=== PATIENT | female | born 1975 | race Two or more races ===

== ENCOUNTER 2017-03-28 13:53 | Emergency (ER) | payer OTHER ==
--- NOTE | 2017-03-28 14:56 | ER Document Report ---
HPI - HPI Patient complains to provider of: fall Onset: This afternoon Onset/Duration: Sudden Quality of pain: Sharp Pain Level: 5 Context: States that she was cleaning toddler playground equipment. Patient states that she fell on a toddler climbing apparatus that was 2 feet tall and fell landing hitting her left shoulder. Patient complains of headache, left lateral neck pain, left shoulder pain and nausea. Patient states nausea has gradually started to improve. Patient also reports she initially had dizziness that has gotten better. Patient denies any loss of consciousness. Associated Symptoms: Headache, Nausea, Other - shoulder pain. denies: Vomiting Exacerbated by: Movement Relieved by: Denies Similar symptoms previously: No Recently seen / treated by doctor: No - ROS ROS below otherwise negative: Yes Systems Reviewed and Negative: Yes All other systems reviewed and negative - NEURO Neurology: REPORTS: Headache, Dizzinesss / Vertigo. DENIES: Weakness - CARDIOVASCULAR Cardiovascular: DENIES: Chest pain - GASTROINTESTINAL Gastrointestinal: REPORTS: Nausea. DENIES: Patient vomiting - MUSCULOSKELETAL Musculoskeletal: REPORTS: Extremity pain, Back Pain, Neck Pain - DERM Skin Color: Normal, [place] Skin Problems: None Past Medical History - General Information source: Patient - Social History Smoking Status: Never Smoker Chew tobacco use (# tins/day): No Frequency of alcohol use: None Drug Abuse: None Occupation: day care Family History: Reviewed & Not Pertinent Patient has suicidal ideation: No Patient has homicidal ideation: No - Medical History Medical History: Negative - Past Medical History Cardiac Medical History: Denies: Hx Heart Attack, Hx Hypertension Pulmonary Medical History: Denies: Hx Asthma Neurological Medical History: Denies: Hx Cerebrovascular Accident, Hx Seizures Renal/ Medical History: Denies: Hx Peritoneal Dialysis GI Medical History: Denies: Hx Hepatitis, Hx Hiatal Hernia, Hx Ulcer Infectious Medical History: Denies: Hx Hepatitis Surgical Hx: Negative Past Surgical History: Denies: Hx Hysterectomy, Hx Mastectomy, Hx Open Heart Surgery, Hx Pacemaker Vertical Provider Document - CONSTITUTIONAL Agree With Documented VS: Yes Exam Limitations: No Limitations General Appearance: WD/WN, No Apparent Distress - INFECTION CONTROL TRAVEL OUTSIDE OF THE [place]. IN LAST 30 DAYS: No - HEENT HEENT: Atraumatic, Normal ENT Exam, Normocephalic, PERRLA Notes: no hemotympanum, no fluid or drainage from ears or nose bilaterally. no scalp hematoma, no ecchymosis or swelling - NECK Neck: Normal Inspection, Supple. negative: Lymphadenopathy-Left, Lymphadenopathy-Right Notes: no midline tenderness, step-off or deformity - RESPIRATORY Respiratory: Breath Sounds Normal, No Respiratory Distress, Chest Non-Tender O2 Sat by Pulse Oximetry: 100 - CARDIOVASCULAR Cardiovascular: Regular Rate, Regular Rhythm, No Murmur Pulses: Normal: Radial - BACK Back: Abnormal Inspection - Trapezius muscle tenderness Notes: no spinal midline tenderness, step-off or deformity - MUSCULOSKELETAL/EXTREMETIES Musculoskeletal/Extremeties: MAEW, FROM, Tender - Left posterior shoulder joint tenderness, no deformity or dislocation, No Edema - NEURO Level of Consciousness: Awake, Alert, Appropriate Motor/Sensory: No Motor Deficit - DERM Integumentary: Warm, Dry, No Rash Course - Vital Signs Vital signs: Temp Pulse Resp BP Pulse Ox 98.2 F 58 L 16 127/97 H 100 03/28/17 14:01 03/28/17 14:01 03/28/17 14:01 03/28/17 14:01 03/28/17 14:01 - Diagnostic Test Radiology reviewed: Reports reviewed Procedures - Immobilization Left Shoulder Pre-Proc Neuro Vasc Exam: Normal Immobilizer type: Sling Performed by: PCT Post-Proc Neuro Vasc Exam: Normal Alignment checked and good: Yes Discharge - Discharge Clinical Impression: Trapezius muscle spasm Fall Qualifiers: Encounter type: initial encounter Qualified Code(s): W19.XXXA - Unspecified fall, initial encounter Head injury Qualifiers: Encounter type: initial encounter Qualified Code(s): S09.90XA - Unspecified injury of head, initial encounter Sprain of left shoulder Qualifiers: Encounter type: initial encounter Shoulder sprain type: unspecified sprain Qualified Code(s): S43.402A - Unspecified sprain of left shoulder joint, initial encounter Condition: Stable Disposition: HOME, SELF-CARE Instructions: Head Injury Precautions ([facility]), Muscle Strain ([facility]), Muscle Relaxers ([facility]), Shoulder Injury ([facility]), Temporary Sling ([facility]) Additional Instructions: Return immediately for any new or worsening symptoms Followup with your primary care provider, call tomorrow to make a followup appointment Follow-up with orthopedic doctor for any continued pain or problems Prescriptions: Cyclobenzaprine HCl [Flexeril 10 Mg Tablet] 10 mg PO TID #15 tablet Forms: Return to Work Referrals: YANNICK POMPA PA-C [Primary Care Provider] - Follow up tomorrow [facility] [Provider Group] - Follow up as needed
--- NOTE | 2017-03-28 15:49 | RADIOLOGY REPORT (SQ) ---
EXAM DESCRIPTION: CT HEAD WITHOUT COMPLETED DATE/TIME: 03/28/2017 3:41 pm REASON FOR STUDY: fall, head injury COMPARISON: None. TECHNIQUE: Axial images acquired through the brain without intravenous contrast. Images reviewed wi th bone, brain and subdural windows. Images stored on PACS. All CT scanners at this facility use dose modulation, iterative reconstruction, and/or weight based d osing when appropriate to reduce radiation dose to as low as reasonably achievable (ALARA). [facility]: Dose Right [facility]: CareDose [facility]: Dose Right [facility]: Teradose 4D [facility]: Smart Songtradr RADIATION DOSE: mGy. LIMITATIONS: None. FINDINGS: VENTRICLES: Normal size and contour. CEREBRUM: No masses. No hemorrhage. No midline shift. Normal rodriguez/white matter differentiation. N o evidence for acute infarction. CEREBELLUM: No masses. No hemorrhage. No alteration of density. No evidence for acute infarction. EXTRAAXIAL SPACES: No fluid collections. No masses. ORBITS AND GLOBE: No intra- or extraconal masses. Normal contour of globe without masses. CALVARIUM: No fracture. PARANASAL SINUSES: No fluid or mucosal thickening. SOFT TISSUES: No mass or hematoma. OTHER: No other significant finding. IMPRESSION: NORMAL BRAIN CT WITHOUT CONTRAST. TECHNICAL DOCUMENTATION: JOB ID: [id number] Quality ID # [id number]: Final reports with documentation of one or more dose reduction techniques (e.g., Au tomated exposure control, adjustment of the mA and/or kV according to patient size, use of iterative reconstruction technique) 2010 [employer] ([employer] All Rights Reserved
--- NOTE | 2017-03-28 16:15 | RADIOLOGY REPORT (SQ) ---
EXAM DESCRIPTION: SHOULDER LEFT 2 OR MORE VIEWS COMPLETED DATE/TIME: 03/28/2017 4:05 pm REASON FOR STUDY: fall, shoulder pain COMPARISON: None. NUMBER OF VIEWS: Three views. TECHNIQUE: Internal rotation, external rotation, and Y view images acquired of the left shoulder. LIMITATIONS: None. FINDINGS: MINERALIZATION: Normal. BONES: No acute fracture or dislocation. No worrisome bone lesions. JOINTS: No dislocation. VISUALIZED LUNGS AND RIBS: No pneumothorax. No rib fracture. SOFT TISSUES: No radiopaque foreign body. OTHER: No other significant finding. IMPRESSION: NEGATIVE STUDY OF THE LEFT SHOULDER. NO RADIOGRAPHIC EVIDENCE OF ACUTE INJURY. TECHNICAL DOCUMENTATION: JOB ID: [id number] [employer]- All Rights Reserved
[2017-03-28] MEDS ORDERED: ONDANSETRON 4 MG TAB.RAPDIS PO ONE (16:20)
[2017-03-28 16:40] VITALS: BP 136/79
== END 2017-03-28 16:38 | disposition home or self-care (01) ==
LOC: ER 13:53
DX: S09.90XA Unspecified injury of head, initial encounter (principal); S43.402A Unspecified sprain of left shoulder joint, initial encounter; M62.838 Other muscle spasm; R11.0 Nausea; R42 Dizziness and giddiness; W17.89XA Other fall from one level to another, initial encounter; Y93.9 Activity, unspecified; Y99.0 Civilian activity done for income or pay
CPT/HCPCS: 99284; 73030; 70450; S0119

== ENCOUNTER 2018-09-17 17:16 | Observation (INO) | payer OTHER ==
[~2018-09-17 17:16] MED LIST: DEXAMETHASONE SOD PHOSPHATE INJ 4 MG/1 ML VIAL ONE; LIDOCAINE 2% INJ-PF (20 MG/ML) 2 ML AMPUL ONE; ONDANSETRON HCL INJ/PF 4 MG/2 ML SDV ONE; ROCURONIUM BROMIDE INJ 50 MG/5 ML VIAL IV ONE; SUCCINYLCHOLINE CHLORIDE INJ 200 MG/10 ML VIAL ONE
--- NOTE | 2018-09-17 18:26 | ER Document Report ---
ED Medical Screen (RME) - General Chief Complaint: Abdominal Pain Stated Complaint: ABDOMINAL PAIN Time Seen by Provider: 09/17/18 18:20 TRAVEL OUTSIDE OF THE [place]. IN LAST 30 DAYS: No - HPI Notes: 09/17/18 18:25 Patient is a 42-year-old female that presents to the emergency department for chief complaint of left adnexal pain. Patient has history of tubal ligation in 2012. She recently found out she was . She has been having pain in her left adnexa for the last few days. Her last normal menstrual cycle was the second week of July. ROS: GENERAL: Denies fever of chills CV: Denies chest pain PHYSICAL EXAMINATION: GENERAL: Well-appearing, well-nourished and in no acute distress. HEAD: Atraumatic, normocephalic. EYES: Pupils equal round extraocular movements intact, conjunctiva are normal. ENT: Nares patent NECK: Normal range of motion LUNGS: No respiratory distress Musculoskeletal: Normal range of motion NEUROLOGICAL: Normal speech, normal gait. PSYCH: Normal mood, normal affect. MDM: Patient seen and examined for rapid initial assessment. Vital signs reviewed. A comprehensive ED assessment and evaluation of the patient, analysis of test results and completion of the medical decision making process will be conducted by additional ED providers. - Related Data Allergies/Adverse Reactions: aspirin [Aspirin] Allergy (Verified 04/29/13 11:31) NEGIN/JANELL Past Medical History - Past Medical History Cardiac Medical History: Denies: Hx Heart Attack, Hx Hypertension Pulmonary Medical History: Denies: Hx Asthma Neurological Medical History: Denies: Hx Cerebrovascular Accident, Hx Seizures Renal/ Medical History: Denies: Hx Peritoneal Dialysis GI Medical History: Denies: Hx Hepatitis, Hx Hiatal Hernia, Hx Ulcer Infectious Medical History: Denies: Hx Hepatitis Past Surgical History: Denies: Hx Hysterectomy, Hx Mastectomy, Hx Open Heart Surgery, Hx Pacemaker Physical Exam - Vital signs Vitals: Temp Pulse Resp BP Pulse Ox 97.9 F 81 18 106/71 100 09/17/18 17:22 09/17/18 17:22 09/17/18 17:22 09/17/18 17:22 09/17/18 17:22 Course - Vital Signs Vital signs: Temp Pulse Resp BP Pulse Ox 97.9 F 81 18 106/71 100 09/17/18 17:22 09/17/18 17:22 09/17/18 17:22 09/17/18 17:22 09/17/18 17:22 Doctor's Discharge - Discharge Referrals: YANNICK POMPA PA-C [Primary Care Provider] - Follow up as needed
[2018-09-17 18:50] LABS: HEMATOCRIT 38.2 % (36.0-47.0); HEMOGLOBIN 13.1 g/dL (12.0-15.5); MEAN CORPUSCULAR HEMOGLOBIN 29.6 pg (27.0-33.4); MEAN CORPUSCULAR HGB CONC 34.3 g/dL (32.0-36.0); MEAN CORPUSCULAR VOLUME 86 fl (80-97); PLATELET COUNT 328 10^3/uL (150-450); RED BLOOD COUNT 4.42 10^6/uL (3.72-5.28); RED CELL DISTRIBUTION WIDTH 12.3 % (11.5-14.0); WHITE BLOOD COUNT 23.7 10^3/uL (4.0-10.5)
[2018-09-17 19:04] LABS: ANION GAP 12 (5-19); BLOOD UREA NITROGEN 10 mg/dL (7-20); CALCIUM 9.4 mg/dL (8.4-10.2); CARBON DIOXIDE 25 mmol/L (22-30); CHLORIDE 100 mmol/L (98-107); GLUCOSE 170 mg/dL (75-110); POTASSIUM 3.8 mmol/L (3.6-5.0); SODIUM 136.5 mmol/L (137-145)
[2018-09-17 19:08] LABS: ABSOLUTE LYMPHOCYTES# (MANUAL) 0.2 10^3/uL (0.5-4.7); ABSOLUTE MONOCYTES # (MANUAL) 1.7 10^3/uL (0.1-1.4); ABSOLUTE NEUTROPHILS# (MANUAL) 21.8 10^3/uL (1.7-8.2); BASOPHILS % (MANUAL) 0 % (0-2); EOSINOPHILS % (MANUAL) 0 % (0-6); LYMPHOCYTES % (MANUAL) 1 % (13-45); MONOCYTES % (MANUAL) 7 % (3-13); SEGMENTED NEUTROPHILS % (MAN) 92 % (42-78); TOTAL CELLS COUNTED 100
[2018-09-17 19:09] LABS: PLATELET COMMENT ADEQUATE; POLYCHROMASIA SLIGHT; TOXIC GRANULATION SLIGHT
[2018-09-17] MEDS ORDERED: FENTANYL CITRATE INJ/PF 100 MCG/2 ML AMPUL IV ONE (19:19)
[2018-09-17] MEDS ORDERED: ONDANSETRON HCL INJ/PF 4 MG/2 ML SDV IV ONE (19:19)
[2018-09-17] MEDS ORDERED: ACETAMINOPHEN 325 MG TABLET PO ONE (19:26)
--- NOTE | 2018-09-17 19:31 | ER Document Report ---
Addendum entered and electronically signed by ROBERTO DONATO PA-C 09/18/18 06:19: Discharge - Discharge Clinical Impression: of unknown anatomic location, Peritonitis Condition: Stable Addendum entered and electronically signed by ROBERTO DONATO PA-C 09/18/18 06:18: Course - Re-evaluation Re-evalutation: 09/18/18 06:15 I have personally provided 30 minutes of critical care time exclusive of time spent on separate billable procedures for of unknown anatomic location and peritonitis. Time includes review of laboratory data, radiology results, discussion with consultants, and monitoring for potential decompensation. - Vital Signs Vital signs: Temp Pulse Resp BP Pulse Ox 98.2 F 100 16 93/50 L 100 09/18/18 05:06 09/18/18 05:06 09/18/18 05:06 09/18/18 05:06 09/18/18 05:06 - Laboratory Result Diagrams: 09/17/18 18:30 09/17/18 18:30 Laboratory results interpreted by me: 09/17/18 09/17/18 09/17/18 18:30 18:30 19:18 WBC 23.7 H Seg Neuts % (Manual) 92 H Lymphocytes % (Manual) 1 L Abs Neuts (Manual) 21.8 H Abs Lymphs (Manual) 0.2 L Abs Monocytes (Manual) 1.7 H Sodium 136.5 L Glucose 170 H Beta HCG, Quant 9970.90 H Urine Protein 30 H Urine Glucose (UA) 50 H Urine Ketones TRACE H Urine Bilirubin SMALL H Urine Urobilinogen 4.0 H Ur Leukocyte Esterase SMALL H Original Note: ED General <LEVY HECTOR - Last Filed: 09/17/18 19:41> - General TRAVEL OUTSIDE OF THE [place] IN LAST 30 DAYS: No <ROBERTO DONATO - Last Filed: 09/18/18 00:19> - General Chief Complaint: Abdominal Pain Stated Complaint: ABDOMINAL PAIN Time Seen by Provider: 09/17/18 18:20 Notes: 42-year-old female presents to the emergency department with chief complaint of left lower quadrant pain. She has history of tubal ligation in 2012. She went to the urgent care this afternoon and a test was done which showed positive and she was transferred here to the emergency department. She has had pain for the last 4 days that is been intermittent in nature, mild, but today became severe. LMP second week of July. She denies fevers, chills, diaphoresis. Denies shortness of breath or chest pain. Endorses nausea, denies vomiting. She endorses dysuria, denies frequency. Denies vaginal discharge. (ROBERTO DONATO) - Related Data Allergies/Adverse Reactions: aspirin [Aspirin] Allergy (Verified 04/29/13 11:31) HIVES/SWELL Past Medical History - General Information source: Patient - Social History Smoking Status: Current Some Day Smoker Family History: Reviewed & Not Pertinent Patient has suicidal ideation: No Patient has homicidal ideation: No - Past Medical History Cardiac Medical History: Denies: Hx Heart Attack, Hx Hypertension Pulmonary Medical History: Denies: Hx Asthma Neurological Medical History: Denies: Hx Cerebrovascular Accident, Hx Seizures Renal/ Medical History: Denies: Hx Peritoneal Dialysis GI Medical History: Denies: Hx Hepatitis, Hx Hiatal Hernia, Hx Ulcer Infectious Medical History: Denies: Hx Hepatitis Past Surgical History: Denies: Hx Hysterectomy, Hx Mastectomy, Hx Open Heart Surgery, Hx Pacemaker <ROBERTO DONATO - Last Filed: 09/18/18 00:19> Review of Systems - Review of Systems Constitutional: See HPI EENT: See HPI Cardiovascular: See HPI Respiratory: See HPI Gastrointestinal: See HPI Genitourinary: No symptoms reported Female Genitourinary: See HPI Musculoskeletal: No symptoms reported Skin: No symptoms reported Hematologic/Lymphatic: No symptoms reported Neurological/Psychological: No symptoms reported <ROBERTO DONATO - Last Filed: 09/18/18 00:19> Physical Exam - Genitourinary External exam: Normal Speculum exam: Cervix closed, Vaginal discharge Vaginal bleeding: None Bimanuel exam: Cervical motion tender. No: Adnexal tenderness <LEVY HECTOR - Last Filed: 09/17/18 19:41> <ROBERTO DONATO - Last Filed: 09/18/18 00:19> - Vital signs Vitals: Temp Pulse Resp BP Pulse Ox 97.9 F 81 18 106/71 100 09/17/18 17:22 09/17/18 17:22 09/17/18 17:22 09/17/18 17:22 09/17/18 17:22 - Notes Notes: Reviewed vital signs and nursing note as charted by RN. CONSTITUTIONAL: Appears in mild distress, well-nourished, acting appropriately for age HEAD: Normocephalic, atraumatic, no swelling EYES: PERRL, Conjunctivae clear, no drainage, EOMI, no scleral icterus ENT: External ears without lesions, External auditory canal is patent, airway patent, mucous membranes pink and moist NECK: Supple, no cervical lymphadenopathy, no masses CARD: Regular rate and rhythm, no murmurs, no rubs, no gallops, capillary refill < 2 seconds, symmetric pulses RESP: The lungs are clear to auscultation bilaterally, no wheezing, no rales, no rhonchi. Respiratory rate and effort are normal, normal chest excursion. No respiratory distress, no retractions, no stridor, no nasal flaring, no accessory muscle use. ABD/GI: Normal bowel sounds, mildly distended, soft, exquisite TTP LLQ and suprapubic area with generalized tenderness to palpation, TTP L flank, no rebound, no guarding, no palpable organomegaly EXT: Normal ROM in all joints, non-tender to palpation, no effusions, no edema SKIN: Normal color for age and race, warm, dry, good turgor, no acute lesions noted NEURO: No facial asymmetry, moves all extremities equally, motor and sensory fun ction intact (ROBERTO DONATO) Course - Laboratory Result Diagrams: 09/17/18 18:30 09/17/18 18:30 <LEVY HECTOR - Last Filed: 09/17/18 19:41> - Laboratory Result Diagrams: 09/17/18 18:30 09/17/18 18:30 <ROBERTO DONATO - Last Filed: 09/18/18 00:19> - Re-evaluation Re-evalutation: 09/17/18 19:31 42-year-old female presents to the emergency department after being transferred from the urgent care for left lower quadrant abdominal pain and a positive test. She had a tubal ligation in 2012 and has been having intermittent abdominal pain for the last 4 days. She said the pain became severe this afternoon. High concern for an ectopic . Plan is to get blood work, pelvic exam, transvaginal ultrasound. Patient has been made n.p.o. abdominal exam was remarkable for exquisite tenderness to palpation in the left lower quadrant/adnexal area with exquisite tenderness to the left flank. She has generalized discomfort in her abdomen and is complaining of severe bloating. Patient wanted a female to perform pelvic exam so I requested Stephan Hector NP to perform the exam. She did. 09/17/18 20:08 09/18/18 00:15 Transvaginal ultrasound did not reveal any intrauterine . Right or left ovary was not visualized on ultrasound. Because patient's hCG was around 10,000 and with respect to patient's acute abdomen very high concern for ectopic . I called Dr. Verde, CAFETERIA OPERATOR on-call she will be taken the patient to the operating room. 09/18/18 00:18 (ROBERTO DONATO) - Vital Signs Vital signs: Temp Pulse Resp BP Pulse Ox 98.1 F 103 H 20 106/67 100 09/17/18 22:38 09/17/18 22:38 09/17/18 22:38 09/17/18 22:38 09/17/18 22:01 - Laboratory Laboratory results interpreted by me: 09/17/18 09/17/18 09/17/18 18:30 18:30 19:18 WBC 23.7 H Seg Neuts % (Manual) 92 H Lymphocytes % (Manual) 1 L Abs Neuts (Manual) 21.8 H Abs Lymphs (Manual) 0.2 L Abs Monocytes (Manual) 1.7 H Sodium 136.5 L Glucose 170 H Beta HCG, Quant 9970.90 H Urine Protein 30 H Urine Glucose (UA) 50 H Urine Ketones TRACE H Urine Bilirubin SMALL H Urine Urobilinogen 4.0 H Ur Leukocyte Esterase SMALL H Discharge <LEVY HECTOR - Last Filed: 09/17/18 19:41> - Discharge Admitting Provider: [facility] Admitted: OR <ROBERTO DONATO - Last Filed: 09/18/18 00:19> - Discharge Clinical Impression: of unknown anatomic location Condition: Stable
[2018-09-17 19:34] LABS: APPEARANCE,URINE CLOUDY; BILIRUBIN,URINE SMALL (NEGATIVE); COLOR,URINE AMBER; GLUCOSE, URINE 50 mg/dL (NEGATIVE); KETONES,URINE TRACE mg/dL (NEGATIVE); LEUKOCYTE ESTERASE,URINE SMALL (NEGATIVE); NITRITE,URINE NEGATIVE (NEGATIVE); PROTEIN,URINE 30 mg/dL (NEGATIVE); URINE SPECIFIC GRAVITY 1.033
[2018-09-17 20:11] LABS: BACTERIA (WET MOUNT) 4+ BACTERIA SEEN; T.VAGINALIS (WET MOUNT) NO TRICHOMONAS SEEN; WBCS (WET MOUNT) 1+ WBCS SEEN; YEAST (WET MOUNT) NO YEAST SEEN
--- NOTE | 2018-09-17 21:17 | RADIOLOGY REPORT (SQ) ---
EXAM DESCRIPTION:Transvaginal ultrasound CLINICAL HISTORY:42 years Female, pelvic pain in preg COMPARISON:None. TECHNIQUE: Grayscale and Doppler sonogram of the pelvis. Transvaginal technique was used for better evaluation of the pelvic viscera FINDINGS: The uterus measures 9.2 x 4.6 x 6.4 cm. No gestational sac is visualized. Endometrial stripe: 14 mm in thickness Right ovary: Not visualized. Left ovary: Not visualized. Impression: No intrauterine is identified which would be expected with a beta-hCG value of almost 10,000. There is heterogeneous material throughout the pelvis which could represent complex fluid/blood or soft tissues. The ovaries are not visualized.
[2018-09-17 21:36] LABS: CHLAM PCR NOT DETECTED (NOT DETECT); GON PCR NOT DETECTED (NOT DETECT)
[2018-09-17] MEDS ORDERED: HYDROMORPHONE HCL INJ/PF 2 MG/ML AMPULE ONE (22:27)
[2018-09-17] MEDS ORDERED: FENTANYL CITRATE INJ/PF 100 MCG/2 ML AMPUL ONE (22:28)
[2018-09-17] MEDS ORDERED: PROPOFOL INJ 200 MG/20 ML VIAL IV ONE (22:28)
[2018-09-17] MEDS ORDERED: MIDAZOLAM 2 MG/2 ML INJ ONE (22:28)
[2018-09-17] MEDS ORDERED: ACETAMINOPHEN 1,000 MG/100 ML RTUPB IV ONE (22:28)
[2018-09-17] MEDS ORDERED: PROMETHAZINE HCL INJ 25 MG/1 ML VIAL IV PRN ×2 (22:34→23:49)
[2018-09-17] MEDS ORDERED: NORMAL SALINE 1000 ML 1,000 ML IV PRN (22:34)
[2018-09-17] MEDS ORDERED: HYDROMORPHONE HCL INJ/PF 2 MG/ML AMPULE IM PRN (22:34)
[2018-09-17] MEDS ORDERED: HYDROCODONE/ACETAMINOPHEN 5-325 MG TABLET PO PRN (22:37)
[2018-09-17] MEDS ORDERED: ACETAMINOPHEN 325 MG TABLET PO PRN (22:38)
[2018-09-17] MEDS ORDERED: SIMETHICONE 80 MG TAB.CHEW PO PRN (22:38)
[2018-09-17] MEDS ORDERED: ACETAMINOPHEN 1,000 MG/100 ML RTUPB IV PRN (22:38)
[2018-09-17] MEDS ORDERED: CEFAZOLIN INJ 1 GM VIAL ONE (22:45)
[2018-09-17] MEDS ORDERED: SUGAMMADEX SODIUM 200 MG/2 ML SDV IV ONE (22:54)
[2018-09-17] MEDS: CEFAZOLIN 2 GM/D5W RTU 2 GM/50 ML RTUPB IV PRN ×2 (22:54→23:20)
--- NOTE | 2018-09-17 22:54 | Brief Operative Note ---
BRIEF OPERATIVE REPORT DATE OF SURGERY: 09/17/18 TIME OF SURGERY: 23:30 PREOPERATIVE DIAGNOSIS: Abdominal pain in , history of bilateral tubal occlusion, Ectopic POSTOPERATIVE DIAGNOSIS: ROVERTO SURGEON: JENNIE ARAIZA FINDINGS: 900ml of hemoperitoneum, left fallopian tube not congruent which is consistent with prior fulguration for sterilization but scarring noted to ovary and uterus, right hemorrhagic ovarian cyst, Right fallopian tube tortuous and appeared congruent but dilated with hemorrhage and ectopic extending from ampullary portion to cornua COMPLICATIONS: none ESTIMATED BLOOD LOSS: less than 5ml for operative EBL, 900ml hemoperitoneum TISSUE REMOVED OR ALTERED: bilateral fallopian tubes, ectopic TECHNICAL PROCEDURE: Operative Laparoscopy, Evacuation of hemoperitoneum, Lysis of adhesions, Right ovarian cystotomy, Bilateral salpingectomy and removal of ectopic
[2018-09-17] MEDS ORDERED: BUPIVACAINE HCL 0.25 % INJ/PF (2.5 MG/1 ML) 30 ML VIAL ONE (22:56)
[2018-09-17] MEDS ORDERED: DIPHENHYDRAMINE HCL 50 MG/ML VIAL IV PRN (23:49)
[2018-09-17] MEDS ORDERED: FENTANYL CITRATE INJ/PF 100 MCG/2 ML AMPUL IV PRN ×3 (23:49)
[2018-09-17] MEDS ORDERED: MEPERIDINE HCL/PF INJ 25 MG/1 ML DISP.SYRIN IV PRN (23:49)
[2018-09-18] MEDS ORDERED: MEPERIDINE HCL/PF INJ 25 MG/1 ML DISP.SYRIN ONE (01:03)
--- NOTE | 2018-09-18 01:15 | Operative Report ---
Operative Report DATE OF SURGERY: 09/17/18 PREOPERATIVE DIAGNOSIS: Abdominal pain in , history of bilateral tubal occlusion, Ectopic POSTOPERATIVE DIAGNOSIS: ROVERTO OPERATION: Operative Laparoscopy, Evacuation of hemoperitoneum, Lysis of adhesions, Right ovarian cystotomy, Bilateral salpingectomy and removal of ectopic SURGEON: JENNIE ARAIZA ANESTHESIA: GA TISSUE REMOVED OR ALTERED: bilateral fallopian tubes, ectopic COMPLICATIONS: none ESTIMATED BLOOD LOSS: less than 5ml for operative EBL, 900ml hemoperitoneum INTRAOPERATIVE FINDINGS: 900ml of hemoperitoneum, left fallopian tube not congruent which is consistent with prior fulguration for sterilization but scarring noted to ovary and uterus, right hemorrhagic ovarian cyst, Right fallopian tube tortuous and appeared congruent but dilated with hemorrhage and ectopic extending from ampullary portion to cornua PROCEDURE: Anesthesiologist: Lulu CEJA, Aliza Rivera CRNA IV fluids: [1000ml] Urine output: [200ml] Indications: [42yo at approximately 6-7wks with unsure LMP presents to the ER with 4 day history of bilateral adnexal pain and pain extending to upper abdomen. History significant for Bilateral Tubal ligation with fulguration in 2012. She went to urgent care today for abdominal pain and found out she was and was sent to [facility] ER. [facility] [place], [place] [id number]. Reviewed with patient US findings concern for ruptured ectopic and need for surgical intervention. The risks, benefits, alternatives of surgical intervention were reviewed and she desire to proceed with planned procedure.] Procedure: The patient was taken to the operating room where general anesthesia was obtained without difficulty. The patient was then examined under anesthesia with findings as noted above with a small anteverted uterus. She was then placed in dorsal supine lithotomy position and prepped and draped in the normal sterile fashion. Somers speculum was then placed in the patient's vagina and the anterior lip of the cervix grasped with a single-tooth tenaculum. A Haute Secure uterine manipulator was then advanced into the uterus to provide a means of manipulation of the uterus. The speculum and tenaculum were then removed from the patient's cervix and vagina. Attention was then turned to the patient's abdomen where a 5 mm infraumbilical skin incision was then made. The Optiview trocar with 0 laparoscope was then advanced without difficulty under direct visualization with the Optiview trocar. This was performed while tenting the abdominal wall and these will fashion. Intraperitoneal placement was confirmed by the direct visualization. Pneumoperitoneum was then obtained with approximately 4 L carbon dioxide gas. Survey of the patient's abdomen and pelvis revealed findings as noted above. A second skin incision was then made approximately 3 cm superior 4 cm medial to the anterior superior iliac spine on the left and then a third skin incision was made approximately 3 cm superior to the lower incision. These incisions were made under direct visualization with the laparoscope. The second and third trochars were then advanced under direct visualization of the laparoscope at the sites. Hemoperitoneum evacuated with suction concrete handler. The right fallopian tube was then identified and followed out to the fimbriated end and noted to be very tortuous and dilated with ectopic from ampullary portion to very near the cornu. The LigaSure device was used to clamp and cauterize and cut the mesosalpinx extending from the fimbriated end to the cornua of the uterus thus removing the right fallopian tube in its entirety with ectopic . The right ovary was noted to be normal and vasculature remained intact to this ovary. The right cornu was hemostatic. Attention was then turned to the left adnexa at which time the left fallopian tube was identified and notd to be incongruent but with scarring to ovary and uterus. LigaSure device was then used to clamp and cauterize and cut the mesosalpinx extending from the fimbriated end of the left fallopian tube to the uterine cornua thus removing the left fallopian tube in its entirety. The left and right fallopian tubes were removed easily through the endobag. All operative sites were visualized and noted to be hemostatic. The 2 additional trochars on the patient's left greater than removed under direct visualization. The 10 mm trocar was then removed after abdominal insufflation was removed. The fascia at the 10 mm trocar site was closed with 0 Vicryl on a UR 6 needle. The skin at all trocar sites were closed with 3-0 Monocryl in a subcuticular fashion with overlying Dermabond. No antibiotics were indicated for this procedure. After completion of skin closure of the trocar sites attention was then turned to the vagina where the Hulka uterine manipulator was removed and the bivalve speculum was replaced. Silver nitrate was applied to the tenaculum sites for hemostasis and the speculum was removed. Sponge lap needle and instrument counts were correct 3. The patient tolerated the procedure well and was taken to the recovery area awake and in stable condition.
[2018-09-18] MEDS: HYDROCODONE/ACETAMINOPHEN 5-325 MG TABLET PO PRN ×2 (04:46→09:23)
[2018-09-18 05:11] LABS: HEMATOCRIT 28.5 % (36.0-47.0); MEAN CORPUSCULAR HEMOGLOBIN 29.6 pg (27.0-33.4); MEAN CORPUSCULAR HGB CONC 34.2 g/dL (32.0-36.0); MEAN CORPUSCULAR VOLUME 87 fl (80-97); PLATELET COUNT 220 10^3/uL (150-450); RED BLOOD COUNT 3.29 10^6/uL (3.72-5.28); RED CELL DISTRIBUTION WIDTH 12.4 % (11.5-14.0); WHITE BLOOD COUNT 22.2 10^3/uL (4.0-10.5)
[2018-09-18 06:10] LABS: HEMOGLOBIN 9.7 g/dL (12.0-15.5)
[2018-09-18 06:13] LABS: ABSOLUTE LYMPHOCYTES# (MANUAL) 0.2 10^3/uL (0.5-4.7); ABSOLUTE MONOCYTES # (MANUAL) 0.4 10^3/uL (0.1-1.4); ABSOLUTE NEUTROPHILS# (MANUAL) 21.5 10^3/uL (1.7-8.2); BASOPHILS % (MANUAL) 0 % (0-2); EOSINOPHILS % (MANUAL) 0 % (0-6); LYMPHOCYTES % (MANUAL) 1 % (13-45); MONOCYTES % (MANUAL) 2 % (3-13); SEGMENTED NEUTROPHILS % (MAN) 97 % (42-78); TOTAL CELLS COUNTED 100
[2018-09-18 06:16] LABS: TOXIC GRANULATION SLIGHT
[2018-09-18 06:17] LABS: BURR CELLS SLIGHT; PLATELET COMMENT ADEQUATE; POIKILOCYTOSIS SLIGHT; TEAR DROP CELLS SLIGHT
[2018-09-18 09:03] VITALS: BP 98/54
[2018-09-18] MEDS ORDERED: DOCUSATE SODIUM 100 MG CAPSULE PO SCH (10:00)
--- NOTE | 2018-09-18 10:38 | PDOC DISCHARGE SUMMARY ---
General - Admit/Disc Date/PCP Admission Date/Primary Care Provider: 09/17/18 22:08 Discharge Date: 09/18/18 - Discharge Diagnosis (1) Ectopic without intrauterine Is this a current diagnosis for this admission?: Yes (2) History of female sterilization Is this a current diagnosis for this admission?: Yes (3) Peritonitis Is this a current diagnosis for this admission?: Yes - Additional Information Resuscitation Status: Full Code History of Present Illness History of Present Illness: LEXX WASHINGTON is a 42 year old female Hospital Course Hospital Course: underwent b/l salpingectomy with removal of ectopic and evacuation of hematoma. doing well. Physical Exam - Physical Exam Vital Signs: Temp Pulse Resp BP Pulse Ox 98 F 89 16 98/54 L 99 09/18/18 08:50 09/18/18 08:50 09/18/18 08:50 09/18/18 08:50 09/18/18 08:50 Intake & Output 09/17/18 09/18/18 09/19/18 06:59 06:59 06:59 Intake Total 1100 Output Total 805 200 Balance 295 -200 Weight 70.7 kg General appearance: PRESENT: no acute distress, cooperative GI/Abdominal exam: PRESENT: soft, tenderness - appropriate for post op period Result Laboratory Results: 09/18/18 04:54 09/17/18 18:30 09/17/18 09/17/18 09/17/18 18:30 18:30 19:18 WBC 23.7 H RBC 4.42 Hgb 13.1 Hct 38.2 MCV 86 MCH 29.6 MCHC 34.3 RDW 12.3 Plt Count 328 Seg Neutrophils % Not Reportable Lymphocytes % Not Reportable Monocytes % Not Reportable Eosinophils % Not Reportable Basophils % Not Reportable Absolute Neutrophils Not Reportable Absolute Lymphocytes Not Reportable Absolute Monocytes Not Reportable Absolute Eosinophils Not Reportable Absolute Basophils Not Reportable Sodium 136.5 L Potassium 3.8 Chloride 100 Carbon Dioxide 25 Anion Gap 12 BUN 10 Creatinine 0.78 Est GFR ( Amer) > 60 Est GFR (Non-Af Amer) > 60 Glucose 170 H Calcium 9.4 Urine Color CARMEN Urine Appearance CLOUDY Urine pH 5.0 Ur Specific Sullivan 1.033 Urine Protein 30 H Urine Glucose (UA) 50 H Urine Ketones TRACE H Urine Blood NEGATIVE Urine Nitrite NEGATIVE Ur Leukocyte Esterase SMALL H Urine WBC (Auto) 5 Urine RBC (Auto) 12 Blood Type Antibody Screen 09/17/18 09/18/18 23:20 04:54 WBC 22.2 H RBC 3.29 L Hgb 9.7 L D Hct 28.5 L MCV 87 MCH 29.6 MCHC 34.2 RDW 12.4 Plt Count 220 Seg Neutrophils % Not Reportable Lymphocytes % Not Reportable Monocytes % Not Reportable Eosinophils % Not Reportable Basophils % Not Reportable Absolute Neutrophils Not Reportable Absolute Lymphocytes Not Reportable Absolute Monocytes Not Reportable Absolute Eosinophils Not Reportable Absolute Basophils Not Reportable Sodium Potassium Chloride Carbon Dioxide Anion Gap BUN Creatinine Est GFR ( Amer) Est GFR (Non-Af Amer) Glucose Calcium Urine Color Urine Appearance Urine pH Ur Specific Sullivan Urine Protein Urine Glucose (UA) Urine Ketones Urine Blood Urine Nitrite Ur Leukocyte Esterase Urine WBC (Auto) Urine RBC (Auto) Blood Type O POSITIVE Antibody Screen NEGATIVE Plan Discharge Plan: discharge home with keflex and pain medication. needs to f/u with Dr. Verde on Monday Time Spent: Less than 30 Minutes
== END 2018-09-18 12:37 | disposition home or self-care (01) ==
LOC: ER 17:16 → EH 22:08 → INTOOBSV 22:08 → 2N 09-18 01:45
PROVIDERS: ADMIT Student in an Organized Health Care Education/Training Program; ATTEND Student in an Organized Health Care Education/Training Program
PROC: 0UT74ZZ Resection of Bilateral Fallopian Tubes, Percutaneous Endoscopic Approach (ICD-10-PCS; 2018-09-17)
PROC: 10T24ZZ Resection of Products of Conception, Ectopic, Percutaneous Endoscopic Approach (ICD-10-PCS; principal; 2018-09-17 23:00)
DX: O00.90 Unspecified ectopic pregnancy without intrauterine pregnancy (principal); N70.11 Chronic salpingitis; K65.9 Peritonitis, unspecified; N83.201 Unspecified ovarian cyst, right side; K66.1 Hemoperitoneum; Z98.51 Tubal ligation status
CPT/HCPCS: 59151; 99291; 96374; 96375; 86900; 86901; 36415 ×2; 87210; 86850; 84702 ×2; 85025 ×2; 80048; 81001; 83036; 87491; 87591; 88305 ×2; 76817; 93976; 94799; G0378 ×3; J2250; J3490 ×3; J1100; J3010; J2175; J1170; J0330; J2405; J2704; J0690; J0131; 840